=== PATIENT | male | born 1980 | race African-American/Black ===

== ENCOUNTER 2022-12-07 15:36 | Inpatient (IN) | payer OTHER ==
[2022-12-07 16:58] VITALS: BMI 23.8
[2022-12-07] MEDS ORDERED: NALOXONE HCL 0.4 MG/ML VIAL IM PRN (18:06)
[2022-12-07] MEDS ORDERED: NALOXONE HCL (KLOXXADO) 8 MG SPRAY NS PRN (18:06)
[2022-12-07] MEDS ORDERED: COLLOIDAL OATMEAL 1 BAR EACH TP PRN (18:06)
[2022-12-07] MEDS ORDERED: guaiFENesin 600 MG TABLET.ER (FP) PO PRN (18:06)
[2022-12-07] MEDS ORDERED: hydrOXYzine PAMOATE 25 MG CAPSULE (FP) PO PRN (18:06)
[2022-12-07] MEDS ORDERED: LOPERAMIDE HCL 2 MG CAPSULE PO PRN (18:06)
[2022-12-07] MEDS ORDERED: AMMONIUM LACTATE 12% LOTION 225 GM BOTTLE TP PRN (18:06)
[2022-12-07] MEDS ORDERED: BENZONATATE 200 MG CAPSULE PO PRN (18:06)
[2022-12-07] MEDS ORDERED: MAG HYDROX/AL HYDROX/SIMETH 30 ML UNIT-DOSE CUP PO PRN (18:06)
[2022-12-07] MEDS ORDERED: MAGNESIUM HYDROX 2400MG/30ML ORAL SUSPENSION 30 ML CUP PO PRN (18:06)
[2022-12-07] MEDS ORDERED: POLYETHYLENE GLYCOL (HEALTHYLAX) 3350 17 GM PACKET PO PRN (18:06)
[2022-12-07] MEDS ORDERED: NICOTINE POLACRILEX 2 MG GUM BUC PRN (18:06)
[2022-12-07] MEDS ORDERED: ACETAMINOPHEN 325 MG TABLET (FP) PO PRN (18:06)
[2022-12-07] MEDS ORDERED: IBUPROFEN 600 MG TABLET (FP) PO PRN (18:06)
[2022-12-07] MEDS ORDERED: IBUPROFEN 400 MG TABLET (FP) PO PRN (18:06)
[2022-12-07] MEDS ORDERED: TUBERCULIN PPD 5 TU/0.1ML SYRINGE (IN PATIENT USE ONLY) ID ONE (21:00)
[2022-12-07] MEDS: MELATONIN 5 MG TABLETS PO SCH (21:46)
[2022-12-07] MEDS: THIAMINE HCL 100 MG TABLET (FP) PO SCH (21:47)
[2022-12-07] MEDS ORDERED: TUBERCULIN PPD 5 TU/0.1ML VIAL ID ONE (21:48)
[2022-12-08] MEDS: LISINOPRIL 10 MG TABLET PO SCH (10:40)
[2022-12-08] MEDS: HYDROCHLOROTHIAZIDE 12.5 MG CAPSULE (FP) PO SCH (10:40)
[2022-12-08] MEDS: ALBUTEROL SO4 HFA INHALER IH PRN ×2 (10:40→21:23)
[2022-12-08] MEDS: PRENATAL VITAMINS W/ FOLIC ACID TABLET (FP) PO SCH (10:42)
[2022-12-08] MEDS: GABAPENTIN 100 MG CAPSULE PO SCH (21:22)
[2022-12-08] MEDS: MELATONIN 5 MG TABLETS PO SCH (21:22)
[2022-12-08] MEDS: THIAMINE HCL 100 MG TABLET (FP) PO SCH (21:23)
[2022-12-09] MEDS: GABAPENTIN 100 MG CAPSULE PO SCH ×3 (06:46→21:30)
[2022-12-09] MEDS: ALBUTEROL SO4 HFA INHALER IH PRN ×2 (07:00→19:14)
[2022-12-09] MEDS: HYDROCHLOROTHIAZIDE 12.5 MG CAPSULE (FP) PO SCH (09:37)
[2022-12-09] MEDS: SERTRALINE HCL 50 MG TABLET (FP) PO SCH (09:37)
[2022-12-09] MEDS: LISINOPRIL 10 MG TABLET PO SCH (09:37)
[2022-12-09] MEDS: PRENATAL VITAMINS W/ FOLIC ACID TABLET (FP) PO SCH (09:37)
[2022-12-09 11:44] LABS: CHLORIDE 102 mmol/L (98-107); POTASSIUM 4.7 mmol/L (3.5-5.1); SODIUM 137 mmol/L (136-145)
[2022-12-09 11:51] LABS: ALBUMIN 3.7 g/dl (3.4-5.0); ANION GAP 4 MMOL/L (8-16); BLOOD UREA NITROGEN 22.8 mg/dL (7-18); CALCIUM 9.3 mg/dL (8.5-10.1); CO2 31 mmol/L (21-32); GLUCOSE,RANDOM 98 mg/dL (74-106)
[2022-12-09 11:53] LABS: HEMATOCRIT 34.8 % (35.4-49); HEMOGLOBIN 11.7 GM/dL (11.7-16.9); MCH 31.6 pg (25.7-33.7); MCHC 33.5 g/dl (32.0-35.9); MEAN CELL VOLUME 94.4 fl (80-96); PLATELET COUNT 382 10^3/uL (134-434); RBC 3.69 M/mm3 (4.00-5.60); RDW 12.6 % (11.9-15.9); WHITE BLOOD COUNT 5.5 K/mm3 (4.0-10.0)
[2022-12-09 11:54] LABS: CREATININE 1.6 mg/dL (0.55-1.3); SGOT/AST 17 U/L (15-37); SGPT/ALT 25 U/L (13-61)
[2022-12-09 11:55] LABS: BILIRUBIN,TOTAL < 0.1 mg/dL (0.2-1); TOT PROT 7.4 g/dl (6.4-8.2)
[2022-12-09 11:57] LABS: ALK PHOS 46 U/L (45-117)
[2022-12-09 14:58] LABS: PH,URINE 5.5 (5.0-8.0); URINE APPEARANCE CLEAR; URINE BILIRUBIN NEGATIVE (NEGATIVE); URINE COLOR YELLOW; URINE GLUCOSE (UA) TRACE (NEGATIVE); URINE KETONE NEGATIVE (NEGATIVE); URINE LEUK ESTERASE NEGATIVE (NEGATIVE); URINE NITRITE NEGATIVE (NEGATIVE); URINE PROTEIN NEGATIVE (NEGATIVE); URINE UROBILINOGEN 0.2 mg/dL (0.2-1.0)
[2022-12-09] MEDS: MELATONIN 5 MG TABLETS PO SCH (21:30)
[2022-12-09] MEDS: THIAMINE HCL 100 MG TABLET (FP) PO SCH (21:31)
[2022-12-10] MEDS: ALBUTEROL SO4 HFA INHALER IH PRN ×2 (04:04→18:34)
[2022-12-10] MEDS: GABAPENTIN 100 MG CAPSULE PO SCH ×3 (05:59→21:34)
[2022-12-10] MEDS: LISINOPRIL 10 MG TABLET PO SCH (10:06)
[2022-12-10] MEDS: HYDROCHLOROTHIAZIDE 12.5 MG CAPSULE (FP) PO SCH (10:06)
[2022-12-10] MEDS: SERTRALINE HCL 50 MG TABLET (FP) PO SCH (10:06)
[2022-12-10] MEDS: PRENATAL VITAMINS W/ FOLIC ACID TABLET (FP) PO SCH (10:06)
[2022-12-10] MEDS: THIAMINE HCL 100 MG TABLET (FP) PO SCH (21:33)
[2022-12-10] MEDS: MELATONIN 5 MG TABLETS PO SCH (21:33)
[2022-12-11] MEDS: GABAPENTIN 100 MG CAPSULE PO SCH ×3 (06:35→21:12)
[2022-12-11] MEDS: ALBUTEROL SO4 HFA INHALER IH PRN ×2 (09:17→21:13)
[2022-12-11] MEDS: SERTRALINE HCL 50 MG TABLET (FP) PO SCH (09:17)
[2022-12-11] MEDS: LISINOPRIL 10 MG TABLET PO SCH (09:17)
[2022-12-11] MEDS: HYDROCHLOROTHIAZIDE 12.5 MG CAPSULE (FP) PO SCH (09:17)
[2022-12-11] MEDS: PRENATAL VITAMINS W/ FOLIC ACID TABLET (FP) PO SCH (09:19)
[2022-12-11] MEDS: THIAMINE HCL 100 MG TABLET (FP) PO SCH (21:12)
[2022-12-11] MEDS: MELATONIN 5 MG TABLETS PO SCH (21:12)
[2022-12-12] MEDS: ALBUTEROL SO4 HFA INHALER IH PRN ×2 (06:02→14:24)
[2022-12-12] MEDS: GABAPENTIN 100 MG CAPSULE PO SCH ×3 (06:03→21:03)
[2022-12-12] MEDS: PRENATAL VITAMINS W/ FOLIC ACID TABLET (FP) PO SCH (09:41)
[2022-12-12] MEDS: LISINOPRIL 10 MG TABLET PO SCH (09:41)
[2022-12-12] MEDS: HYDROCHLOROTHIAZIDE 12.5 MG CAPSULE (FP) PO SCH (09:41)
[2022-12-12] MEDS: SERTRALINE HCL 50 MG TABLET (FP) PO SCH (09:41)
[2022-12-12] MEDS: THIAMINE HCL 100 MG TABLET (FP) PO SCH (21:03)
[2022-12-12] MEDS: MELATONIN 5 MG TABLETS PO SCH (21:03)
[2022-12-13] MEDS: GABAPENTIN 100 MG CAPSULE PO SCH ×3 (06:05→21:07)
[2022-12-13] MEDS: ALBUTEROL SO4 HFA INHALER IH PRN ×3 (06:06→21:07)
[2022-12-13] MEDS: LISINOPRIL 10 MG TABLET PO SCH (10:03)
[2022-12-13] MEDS: PRENATAL VITAMINS W/ FOLIC ACID TABLET (FP) PO SCH (10:03)
[2022-12-13] MEDS: HYDROCHLOROTHIAZIDE 12.5 MG CAPSULE (FP) PO SCH (10:04)
[2022-12-13] MEDS: SERTRALINE HCL 50 MG TABLET (FP) PO SCH (10:04)
[2022-12-13] MEDS: MELATONIN 5 MG TABLETS PO SCH (21:07)
[2022-12-13] MEDS: THIAMINE HCL 100 MG TABLET (FP) PO SCH (21:07)
[2022-12-14] MEDS: ALBUTEROL SO4 HFA INHALER IH PRN ×3 (06:04→21:46)
[2022-12-14] MEDS: GABAPENTIN 100 MG CAPSULE PO SCH ×3 (06:04→21:46)
[2022-12-14] MEDS: PRENATAL VITAMINS W/ FOLIC ACID TABLET (FP) PO SCH (09:54)
[2022-12-14] MEDS: LISINOPRIL 10 MG TABLET PO SCH (09:54)
[2022-12-14] MEDS: SERTRALINE HCL 50 MG TABLET (FP) PO SCH (09:54)
[2022-12-14] MEDS: HYDROCHLOROTHIAZIDE 12.5 MG CAPSULE (FP) PO SCH (09:54)
[2022-12-14 12:01] LABS: BASO % 1.9 % (0-2.0); EOS % 3.6 % (0-4.5); HEMATOCRIT 32.6 % (35.4-49); HEMOGLOBIN 10.6 GM/dL (11.7-16.9); MCH 30.3 pg (25.7-33.7); MCHC 32.4 g/dl (32.0-35.9); MEAN CELL VOLUME 93.5 fl (80-96); MONO % 15.2 % (3.8-10.2); NEUT % 54.3 % (42.8-82.8); PLATELET COUNT 306 10^3/uL (134-434); RBC 3.48 M/mm3 (4.00-5.60); RDW 12.9 % (11.9-15.9); WHITE BLOOD COUNT 6.6 K/mm3 (4.0-10.0)
[2022-12-14 12:15] LABS: ALBUMIN 3.5 g/dl (3.4-5.0); ANION GAP 5 MMOL/L (8-16); BLOOD UREA NITROGEN 17.9 mg/dL (7-18); CHLORIDE 104 mmol/L (98-107); CO2 31 mmol/L (21-32); GLUCOSE,RANDOM 102 mg/dL (74-106); POTASSIUM 4.5 mmol/L (3.5-5.1); SODIUM 140 mmol/L (136-145)
[2022-12-14 12:16] LABS: CALCIUM 9.5 mg/dL (8.5-10.1)
[2022-12-14 12:17] LABS: CREATININE 1.4 mg/dL (0.55-1.3); SGOT/AST 16 U/L (15-37); SGPT/ALT 27 U/L (13-61)
[2022-12-14 12:18] LABS: BILIRUBIN,TOTAL < 0.1 mg/dL (0.2-1); TOT PROT 6.9 g/dl (6.4-8.2)
[2022-12-14 12:19] LABS: ALK PHOS 42 U/L (45-117)
[2022-12-14] MEDS: MELATONIN 5 MG TABLETS PO SCH (21:45)
[2022-12-14] MEDS: THIAMINE HCL 100 MG TABLET (FP) PO SCH (21:46)
[2022-12-15] MEDS: ALBUTEROL SO4 HFA INHALER IH PRN ×2 (06:06→16:53)
[2022-12-15] MEDS: GABAPENTIN 100 MG CAPSULE PO SCH ×3 (06:06→21:19)
[2022-12-15] MEDS: PRENATAL VITAMINS W/ FOLIC ACID TABLET (FP) PO SCH (10:30)
[2022-12-15] MEDS: HYDROCHLOROTHIAZIDE 12.5 MG CAPSULE (FP) PO SCH (10:31)
[2022-12-15] MEDS: LISINOPRIL 10 MG TABLET PO SCH (10:31)
[2022-12-15] MEDS: SERTRALINE HCL 50 MG TABLET (FP) PO SCH (10:31)
[2022-12-15] MEDS: MELATONIN 5 MG TABLETS PO SCH (21:18)
[2022-12-15] MEDS: THIAMINE HCL 100 MG TABLET (FP) PO SCH (21:19)
[2022-12-16] MEDS: GABAPENTIN 100 MG CAPSULE PO SCH ×3 (06:08→21:43)
[2022-12-16] MEDS: ALBUTEROL SO4 HFA INHALER IH PRN ×2 (06:08→18:56)
[2022-12-16] MEDS: PRENATAL VITAMINS W/ FOLIC ACID TABLET (FP) PO SCH (09:28)
[2022-12-16] MEDS: HYDROCHLOROTHIAZIDE 12.5 MG CAPSULE (FP) PO SCH (09:29)
[2022-12-16] MEDS: SERTRALINE HCL 50 MG TABLET (FP) PO SCH (09:29)
[2022-12-16] MEDS: LISINOPRIL 10 MG TABLET PO SCH (09:29)
[2022-12-16] MEDS ORDERED: AZITHROMYCIN 250 MG TABLET PO ONE (10:39)
[2022-12-16] MEDS ORDERED: BENZONATATE 200 MG CAPSULE PO PRN (10:40)
[2022-12-16] MEDS: MELATONIN 5 MG TABLETS PO SCH (21:43)
[2022-12-16] MEDS: THIAMINE HCL 100 MG TABLET (FP) PO SCH (21:43)
[2022-12-17] MEDS: ALBUTEROL SO4 HFA INHALER IH PRN ×3 (06:03→20:51)
[2022-12-17] MEDS: GABAPENTIN 100 MG CAPSULE PO SCH ×3 (06:03→21:26)
[2022-12-17] MEDS: AZITHROMYCIN 250 MG TABLET PO SCH (09:40)
[2022-12-17] MEDS: SERTRALINE HCL 50 MG TABLET (FP) PO SCH (09:40)
[2022-12-17] MEDS: HYDROCHLOROTHIAZIDE 12.5 MG CAPSULE (FP) PO SCH (09:40)
[2022-12-17] MEDS: LISINOPRIL 10 MG TABLET PO SCH (09:40)
[2022-12-17] MEDS: PRENATAL VITAMINS W/ FOLIC ACID TABLET (FP) PO SCH (09:40)
[2022-12-17] MEDS: THIAMINE HCL 100 MG TABLET (FP) PO SCH (21:26)
[2022-12-17] MEDS: MELATONIN 5 MG TABLETS PO SCH (21:26)
[2022-12-18] MEDS: ALBUTEROL SO4 HFA INHALER IH PRN ×3 (06:20→21:02)
[2022-12-18] MEDS: GABAPENTIN 100 MG CAPSULE PO SCH ×3 (06:20→21:02)
[2022-12-18] MEDS: HYDROCHLOROTHIAZIDE 12.5 MG CAPSULE (FP) PO SCH (09:57)
[2022-12-18] MEDS: PRENATAL VITAMINS W/ FOLIC ACID TABLET (FP) PO SCH (09:57)
[2022-12-18] MEDS: AZITHROMYCIN 250 MG TABLET PO SCH (09:57)
[2022-12-18] MEDS: LISINOPRIL 10 MG TABLET PO SCH (09:58)
[2022-12-18] MEDS: SERTRALINE HCL 50 MG TABLET (FP) PO SCH (09:58)
[2022-12-18] MEDS: MELATONIN 5 MG TABLETS PO SCH (21:02)
[2022-12-18] MEDS: THIAMINE HCL 100 MG TABLET (FP) PO SCH (21:02)
[2022-12-19] MEDS: ALBUTEROL SO4 HFA INHALER IH PRN ×3 (06:22→19:48)
[2022-12-19] MEDS: GABAPENTIN 100 MG CAPSULE PO SCH ×3 (06:22→21:25)
[2022-12-19] MEDS: PRENATAL VITAMINS W/ FOLIC ACID TABLET (FP) PO SCH (09:34)
[2022-12-19] MEDS: SERTRALINE HCL 50 MG TABLET (FP) PO SCH (09:34)
[2022-12-19] MEDS: LISINOPRIL 10 MG TABLET PO SCH (09:34)
[2022-12-19] MEDS: HYDROCHLOROTHIAZIDE 12.5 MG CAPSULE (FP) PO SCH (09:34)
[2022-12-19] MEDS: AZITHROMYCIN 250 MG TABLET PO SCH (09:34)
[2022-12-19] MEDS: BENZOCAINE/MENTHOL (CHLORASEPTIC ) LOZENGE MM PRN (14:19)
[2022-12-19] MEDS: MELATONIN 5 MG TABLETS PO SCH (21:25)
[2022-12-19] MEDS: THIAMINE HCL 100 MG TABLET (FP) PO SCH (21:25)
[2022-12-20] MEDS: ALBUTEROL SO4 HFA INHALER IH PRN ×2 (06:05→19:58)
[2022-12-20] MEDS: GABAPENTIN 100 MG CAPSULE PO SCH ×3 (06:06→21:20)
[2022-12-20] MEDS: LISINOPRIL 10 MG TABLET PO SCH (09:50)
[2022-12-20] MEDS: AZITHROMYCIN 250 MG TABLET PO SCH (09:50)
[2022-12-20] MEDS: SERTRALINE HCL 50 MG TABLET (FP) PO SCH (09:50)
[2022-12-20] MEDS: PRENATAL VITAMINS W/ FOLIC ACID TABLET (FP) PO SCH (09:50)
[2022-12-20] MEDS: HYDROCHLOROTHIAZIDE 12.5 MG CAPSULE (FP) PO SCH (09:50)
[2022-12-20] MEDS: THIAMINE HCL 100 MG TABLET (FP) PO SCH (21:19)
[2022-12-20] MEDS: MELATONIN 5 MG TABLETS PO SCH (21:20)
[2022-12-21] MEDS: ALBUTEROL SO4 HFA INHALER IH PRN ×2 (06:08→19:04)
[2022-12-21] MEDS: GABAPENTIN 100 MG CAPSULE PO SCH ×3 (06:09→21:30)
[2022-12-21] MEDS: PRENATAL VITAMINS W/ FOLIC ACID TABLET (FP) PO SCH (09:31)
[2022-12-21] MEDS: HYDROCHLOROTHIAZIDE 12.5 MG CAPSULE (FP) PO SCH (09:31)
[2022-12-21] MEDS: AZITHROMYCIN 250 MG TABLET PO SCH (09:31)
[2022-12-21] MEDS: SERTRALINE HCL 50 MG TABLET (FP) PO SCH (09:31)
[2022-12-21] MEDS: LISINOPRIL 10 MG TABLET PO SCH (09:32)
[2022-12-21] MEDS: MELATONIN 5 MG TABLETS PO SCH (21:31)
[2022-12-21] MEDS: THIAMINE HCL 100 MG TABLET (FP) PO SCH (21:31)
[2022-12-22] MEDS: GABAPENTIN 100 MG CAPSULE PO SCH ×3 (06:04→21:19)
[2022-12-22] MEDS: ALBUTEROL SO4 HFA INHALER IH PRN ×3 (06:04→21:19)
[2022-12-22] MEDS: AZITHROMYCIN 250 MG TABLET PO SCH (09:21)
[2022-12-22] MEDS: LISINOPRIL 10 MG TABLET PO SCH (09:21)
[2022-12-22] MEDS: SERTRALINE HCL 50 MG TABLET (FP) PO SCH (09:21)
[2022-12-22] MEDS: HYDROCHLOROTHIAZIDE 12.5 MG CAPSULE (FP) PO SCH (09:21)
[2022-12-22] MEDS: PRENATAL VITAMINS W/ FOLIC ACID TABLET (FP) PO SCH (09:21)
[2022-12-22] MEDS: BENZOCAINE/MENTHOL (CHLORASEPTIC ) LOZENGE MM PRN (11:10)
[2022-12-22] MEDS: THIAMINE HCL 100 MG TABLET (FP) PO SCH (21:19)
[2022-12-22] MEDS: MELATONIN 5 MG TABLETS PO SCH (21:19)
[2022-12-23] MEDS: GABAPENTIN 100 MG CAPSULE PO SCH ×3 (06:08→21:32)
[2022-12-23] MEDS: HYDROCHLOROTHIAZIDE 12.5 MG CAPSULE (FP) PO SCH (09:28)
[2022-12-23] MEDS: AZITHROMYCIN 250 MG TABLET PO SCH (09:28)
[2022-12-23] MEDS: LISINOPRIL 10 MG TABLET PO SCH (09:28)
[2022-12-23] MEDS: PRENATAL VITAMINS W/ FOLIC ACID TABLET (FP) PO SCH (09:28)
[2022-12-23] MEDS: SERTRALINE HCL 50 MG TABLET (FP) PO SCH (09:28)
[2022-12-23] MEDS: ALBUTEROL SO4 HFA INHALER IH PRN ×2 (12:56→21:32)
[2022-12-23] MEDS: THIAMINE HCL 100 MG TABLET (FP) PO SCH (21:32)
[2022-12-23] MEDS: MELATONIN 5 MG TABLETS PO SCH (21:32)
[2022-12-24] MEDS: GABAPENTIN 100 MG CAPSULE PO SCH ×3 (06:03→21:26)
[2022-12-24] MEDS: ALBUTEROL SO4 HFA INHALER IH PRN ×2 (06:15→21:26)
[2022-12-24] MEDS: HYDROCHLOROTHIAZIDE 12.5 MG CAPSULE (FP) PO SCH (09:34)
[2022-12-24] MEDS: LISINOPRIL 10 MG TABLET PO SCH (09:34)
[2022-12-24] MEDS: SERTRALINE HCL 50 MG TABLET (FP) PO SCH (09:34)
[2022-12-24] MEDS: MULTIVIT-MINERALS ORAL LIQUID PO SCH (10:08)
[2022-12-24] MEDS: THIAMINE HCL 100 MG TABLET (FP) PO SCH (21:26)
[2022-12-24] MEDS: MELATONIN 5 MG TABLETS PO SCH (21:26)
[2022-12-25] MEDS: GABAPENTIN 100 MG CAPSULE PO SCH ×3 (06:33→21:03)
[2022-12-25] MEDS: MULTIVIT-MINERALS ORAL LIQUID PO SCH (09:30)
[2022-12-25] MEDS: SERTRALINE HCL 50 MG TABLET (FP) PO SCH (09:30)
[2022-12-25] MEDS: ALBUTEROL SO4 HFA INHALER IH PRN ×2 (09:30→17:54)
[2022-12-25] MEDS: HYDROCHLOROTHIAZIDE 12.5 MG CAPSULE (FP) PO SCH (11:01)
[2022-12-25] MEDS: LISINOPRIL 10 MG TABLET PO SCH (11:01)
[2022-12-25] MEDS: MELATONIN 5 MG TABLETS PO SCH (21:03)
[2022-12-25] MEDS: THIAMINE HCL 100 MG TABLET (FP) PO SCH (21:03)
[2022-12-26] MEDS: GABAPENTIN 100 MG CAPSULE PO SCH ×3 (05:57→21:23)
[2022-12-26] MEDS: ALBUTEROL SO4 HFA INHALER IH PRN (05:58)
[2022-12-26] MEDS: HYDROCHLOROTHIAZIDE 12.5 MG CAPSULE (FP) PO SCH (09:46)
[2022-12-26] MEDS: MULTIVIT-MINERALS ORAL LIQUID PO SCH (09:46)
[2022-12-26] MEDS: LISINOPRIL 10 MG TABLET PO SCH (09:47)
[2022-12-26] MEDS: SERTRALINE HCL 50 MG TABLET (FP) PO SCH (09:47)
[2022-12-26] MEDS: MELATONIN 5 MG TABLETS PO SCH (21:22)
[2022-12-26] MEDS: THIAMINE HCL 100 MG TABLET (FP) PO SCH (21:23)
[2022-12-27] MEDS: GABAPENTIN 100 MG CAPSULE PO SCH ×3 (06:04→21:03)
[2022-12-27] MEDS: ALBUTEROL SO4 HFA INHALER IH PRN ×2 (06:04→21:03)
[2022-12-27] MEDS: MULTIVIT-MINERALS ORAL LIQUID PO SCH (09:27)
[2022-12-27] MEDS: LISINOPRIL 10 MG TABLET PO SCH (09:28)
[2022-12-27] MEDS: HYDROCHLOROTHIAZIDE 12.5 MG CAPSULE (FP) PO SCH (09:29)
[2022-12-27] MEDS: SERTRALINE HCL 50 MG TABLET (FP) PO SCH (11:07)
[2022-12-27] MEDS: THIAMINE HCL 100 MG TABLET (FP) PO SCH (21:02)
[2022-12-27] MEDS: MELATONIN 5 MG TABLETS PO SCH (21:03)
[2022-12-28] MEDS: GABAPENTIN 100 MG CAPSULE PO SCH ×3 (05:58→21:06)
[2022-12-28] MEDS: ALBUTEROL SO4 HFA INHALER IH PRN ×2 (05:58→21:07)
[2022-12-28] MEDS: LISINOPRIL 10 MG TABLET PO SCH (09:49)
[2022-12-28] MEDS: MULTIVIT-MINERALS ORAL LIQUID PO SCH (09:49)
[2022-12-28] MEDS: SERTRALINE HCL 50 MG TABLET (FP) PO SCH (09:49)
[2022-12-28] MEDS: HYDROCHLOROTHIAZIDE 12.5 MG CAPSULE (FP) PO SCH (09:50)
[2022-12-28] MEDS: MELATONIN 5 MG TABLETS PO SCH (21:06)
[2022-12-28] MEDS: THIAMINE HCL 100 MG TABLET (FP) PO SCH (21:06)
[2022-12-29] MEDS: GABAPENTIN 100 MG CAPSULE PO SCH ×3 (06:12→22:12)
[2022-12-29] MEDS: MULTIVIT-MINERALS ORAL LIQUID PO SCH (09:40)
[2022-12-29] MEDS: HYDROCHLOROTHIAZIDE 12.5 MG CAPSULE (FP) PO SCH (09:41)
[2022-12-29] MEDS: LISINOPRIL 10 MG TABLET PO SCH (09:41)
[2022-12-29] MEDS: SERTRALINE HCL 50 MG TABLET (FP) PO SCH (09:41)
[2022-12-29] MEDS: ALBUTEROL SO4 HFA INHALER IH PRN ×2 (09:41→22:13)
[2022-12-29] MEDS: MELATONIN 5 MG TABLETS PO SCH (22:11)
[2022-12-29] MEDS: THIAMINE HCL 100 MG TABLET (FP) PO SCH (22:11)
[2022-12-30] MEDS: GABAPENTIN 100 MG CAPSULE PO SCH ×3 (05:49→21:15)
[2022-12-30] MEDS: ALBUTEROL SO4 HFA INHALER IH PRN ×2 (06:24→21:15)
[2022-12-30] MEDS: SERTRALINE HCL 50 MG TABLET (FP) PO SCH (09:57)
[2022-12-30] MEDS: LISINOPRIL 10 MG TABLET PO SCH (09:57)
[2022-12-30] MEDS: HYDROCHLOROTHIAZIDE 12.5 MG CAPSULE (FP) PO SCH (09:57)
[2022-12-30] MEDS: MULTIVIT-MINERALS ORAL LIQUID PO SCH (09:57)
[2022-12-30] MEDS: MELATONIN 5 MG TABLETS PO SCH (21:15)
[2022-12-30] MEDS: THIAMINE HCL 100 MG TABLET (FP) PO SCH (21:15)
[2022-12-31] MEDS: GABAPENTIN 100 MG CAPSULE PO SCH ×3 (06:06→21:31)
[2022-12-31] MEDS: ALBUTEROL SO4 HFA INHALER IH PRN (06:07)
[2022-12-31] MEDS: HYDROCHLOROTHIAZIDE 12.5 MG CAPSULE (FP) PO SCH (09:46)
[2022-12-31] MEDS: LISINOPRIL 10 MG TABLET PO SCH (09:46)
[2022-12-31] MEDS: MULTIVIT-MINERALS ORAL LIQUID PO SCH (09:47)
[2022-12-31] MEDS: SERTRALINE HCL 50 MG TABLET (FP) PO SCH (09:47)
[2022-12-31] MEDS: THIAMINE HCL 100 MG TABLET (FP) PO SCH (21:31)
[2022-12-31] MEDS: MELATONIN 5 MG TABLETS PO SCH (21:31)
[2023-01-01] MEDS: ALBUTEROL SO4 HFA INHALER IH PRN ×2 (06:17→21:12)
[2023-01-01] MEDS: GABAPENTIN 100 MG CAPSULE PO SCH ×3 (06:17→21:13)
[2023-01-01] MEDS: MULTIVIT-MINERALS ORAL LIQUID PO SCH (09:40)
[2023-01-01] MEDS: LISINOPRIL 10 MG TABLET PO SCH (09:41)
[2023-01-01] MEDS: HYDROCHLOROTHIAZIDE 12.5 MG CAPSULE (FP) PO SCH (09:41)
[2023-01-01] MEDS: SERTRALINE HCL 50 MG TABLET (FP) PO SCH (09:41)
[2023-01-01] MEDS: THIAMINE HCL 100 MG TABLET (FP) PO SCH (21:13)
[2023-01-01] MEDS: MELATONIN 5 MG TABLETS PO SCH (21:13)
[2023-01-02] MEDS: ALBUTEROL SO4 HFA INHALER IH PRN ×3 (06:21→23:15)
[2023-01-02] MEDS: GABAPENTIN 100 MG CAPSULE PO SCH ×3 (06:22→21:25)
[2023-01-02] MEDS: LISINOPRIL 10 MG TABLET PO SCH (09:19)
[2023-01-02] MEDS: SERTRALINE HCL 50 MG TABLET (FP) PO SCH (09:19)
[2023-01-02] MEDS: HYDROCHLOROTHIAZIDE 12.5 MG CAPSULE (FP) PO SCH (09:19)
[2023-01-02] MEDS: MULTIVIT-MINERALS ORAL LIQUID PO SCH (09:20)
[2023-01-02] MEDS: THIAMINE HCL 100 MG TABLET (FP) PO SCH (21:25)
[2023-01-02] MEDS: MELATONIN 5 MG TABLETS PO SCH (21:26)
[2023-01-03] MEDS: GABAPENTIN 100 MG CAPSULE PO SCH ×3 (06:17→21:30)
[2023-01-03] MEDS: ALBUTEROL SO4 HFA INHALER IH PRN (06:17)
[2023-01-03] MEDS: SERTRALINE HCL 50 MG TABLET (FP) PO SCH (09:23)
[2023-01-03] MEDS: HYDROCHLOROTHIAZIDE 12.5 MG CAPSULE (FP) PO SCH (09:23)
[2023-01-03] MEDS: LISINOPRIL 10 MG TABLET PO SCH (09:23)
[2023-01-03] MEDS: MULTIVIT-MINERALS ORAL LIQUID PO SCH (09:23)
[2023-01-03 10:39] VITALS: RESP 16
[2023-01-03] MEDS: THIAMINE HCL 100 MG TABLET (FP) PO SCH (21:29)
[2023-01-03] MEDS: MELATONIN 5 MG TABLETS PO SCH (21:30)
[2023-01-04] MEDS: GABAPENTIN 100 MG CAPSULE PO SCH (06:13)
[2023-01-04] MEDS: ALBUTEROL SO4 HFA INHALER IH PRN (06:13)
[2023-01-04 07:09] VITALS: BP 122/75; PULSE 68; TEMP 98.2
[2023-01-04] MEDS: MULTIVIT-MINERALS ORAL LIQUID PO SCH (09:14)
[2023-01-04] MEDS: HYDROCHLOROTHIAZIDE 12.5 MG CAPSULE (FP) PO SCH (09:15)
[2023-01-04] MEDS: SERTRALINE HCL 50 MG TABLET (FP) PO SCH (09:15)
[2023-01-04] MEDS: LISINOPRIL 10 MG TABLET PO SCH (09:16)
== END 2023-01-04 09:56 | disposition home or self-care (01) | DRG 772 ==
LOC: YASAS 15:36 → Y3W 20:52
PROVIDERS: ADMIT Allergy & Immunology; ATTEND Psychiatry & Neurology Pain Medicine
PROC: HZ42ZZZ Group Counseling for Substance Abuse Treatment, Cognitive-Behavioral (ICD-10-PCS; principal; 2022-12-07)
DX: F10.20 Alcohol dependence, uncomplicated (principal); F17.210 Nicotine dependence, cigarettes, uncomplicated; F41.9 Anxiety disorder, unspecified; F32.A Depression, unspecified; I10 Essential (primary) hypertension; J45.20 Mild intermittent asthma, uncomplicated; R05.9 Cough, unspecified; Z20.822 Contact with and (suspected) exposure to COVID-19; Z86.718 Personal history of other venous thrombosis and embolism; Z28.310 Unvaccinated for COVID-19; Z28.9 Immunization not carried out for unspecified reason
CPT/HCPCS: 36415; 80053; 81003; 85025; 85027; 86780; 87635; 87811